=== PATIENT | male | born 1990 | race African-American/Black ===

== ENCOUNTER 2017-07-02 18:27 | Emergency (ER) | payer OTHER ==
[~2017-07-02] VITALS: Ht 180.3 cm; Wt 75.9 kg
[2017-07-02] MEDS ORDERED: KETOROLAC 60 MG/2 ML VIAL (J1885) IM ONE (23:00)
[2017-07-02] MEDS ORDERED: NAPR500T PO (23:38)
[2017-07-02 23:48] VITALS: BP 124/67
--- NOTE | 2017-07-03 07:49 | REP ---
PA and lateral chest: There are no comparisons. The lung chapa are clear. The cardiac size is normal The romy, mediastinum, and bony thorax are unremarkable. Impression: Negative PA and lateral chest. Signed by Cristian Francis MD 07/03/2017 07:40 A
== END 2017-07-02 23:49 | disposition home or self-care (01) ==
LOC: M ED 18:27
DX: M94.0 Chondrocostal junction syndrome [Tietze] (principal); Z72.0 Tobacco use
CPT/HCPCS: 71020; 96372; 99282; J1885